=== PATIENT | female | born 1950 | race Caucasian/White ===

== ENCOUNTER 2017-04-02 12:01 | Emergency (ER) | payer MEDICARE, OTHER ==
[2017-04-02] MEDS ORDERED: HYOSCYAMINE SULFATE ODT 0.125 MG TAB.SUBL SL ONE (12:17)
--- NOTE | 2017-04-02 12:20 | Emergency Department Record ---
History of Present Illness - General Chief complaint: Nausea, Vomiting, Diarrhea Stated complaint: DIARRHEA Time Seen by Provider: 04/02/17 12:16 Source: Patient Mode of Arrival: Ambulatory Limitations: No limitations - History of Present Illness Initial comments: 66 yo female presents to ED with a 48-hour history of loose stools and abdominal cramping symptoms. Patient denies nausea or vomiting, denies fevers/ chills. Patient denies any recent ill contacts, and denies antibiotic use in the past 3 months. Patient denies eating anything out of ordinary as well. MD complaint: Abdominal pain, Diarrhea Onset/Timin -: Days(s) Description of Vomiting: Watery Associated Abdominal Pain: Yes Location: Diffuse Severity: Moderate Severity scale (1-10): 6 Quality: Aching Consistency: Constant Improves with: None Associated Symptoms: Denies other symptoms - Related Data Home Medications Medication Instructions Recorded Confirmed Last Taken Multivitamin [Multi-Day Vitamins] 1 each PO tab 12/30/15 Unknown Previous Rx's Medication Instructions Recorded Ciprofloxacin HCl [Cipro] 500 mg PO Q12HR #20 tablet 04/02/17 Hyoscyamine Sulfate [Levsin-Sl] 0.25 mg SL Q8H PRN #15 tab.subl 04/02/17 Metronidazole [Flagyl] 500 mg PO TID #30 tablet 04/02/17 Allergies Allergy/AdvReac Type Severity Reaction Status Date / Time amoxicillin Allergy RASH Verified 04/02/17 12:09 shellfish derived Allergy PT UNSURE Verified 04/02/17 12:09 OF REACTION Travel Screening - Travel/Exposure Within Last 30 Days Have you traveled within the last 30 days?: No - Travel/Exposure Within Last Year Have you traveled outside the [place] in the last year?: No - Additonal Travel Details Have you been exposed to anyone with a communicable illness?: No - Travel Symptoms Symptom Screening: None Review of Systems Constitutional: Denies: Chills, Fever, Malaise, Night sweats Eyes: Denies: Eye discharge, Eye pain ENT: Denies: Congestion, Ear pain, Epistaxis Respiratory: Denies: Cough, Dyspnea Cardiovascular: Denies: Chest pain, Dyspnea on exertion Endocrine: Denies: Fatigue, Heat or cold intolerance Gastrointestinal: Reports: Abdominal pain, Diarrhea. Denies: Nausea, Vomiting Genitourinary: Denies: Incontinence, Retention Musculoskeletal: Denies: Arthralgia, Back pain, Gout, Joint swelling Skin: Denies: Bruising, Change in color Neurological: Reports: Headache. Denies: Abnormal gait Psychiatric: Denies: Anxiety Hematological/Lymphatic: Denies: Anemia, Blood Clots Past Medical History - SOCIAL HISTORY Smoking Status: Never smoker Alcohol Use: None Drug Use: None - RESPIRATORY Hx Respiratory Disorders: Yes Hx Asthma: Yes Hx Pneumonia: Yes Hx Pulmonary Embolism: Yes - CARDIOVASCULAR Hx Cardio Disorders: No - NEURO Hx Neuro Disorders: No - GI Hx GI Disorders: No - Hx Genitourinary Disorders: No - ENDOCRINE Hx Endocrine Disorders: No - MUSCULOSKELETAL Hx Musculoskeletal Disorders: No - PSYCH Hx Psych Problems: No - HEMATOLOGY/ONCOLOGY Hx Hematology/Oncology Disorders: No Family Medical History Any Significant Family History?: Yes Family Hx Comment (NOT TO BE USED IN PLACE OF ITEMS BELOW): Grandparents- Alzhiemers,Parkinson's. Mother- Alzhiemer's. Father- Clots. Grandparents- clots Hx Cancer: Mother, Brother/Sister Physical Exam - General General Appearance: Alert, Oriented x3, Cooperative, Moderate distress Limitations: No limitations - Head Head exam: Atraumatic, Normocephalic, Normal inspection Head exam detail: negative: Abrasion, Contusion, Ugalde's sign, General tenderness, Hematoma, Laceration - Eye Eye exam: Normal appearance. negative: Conjunctival injection, Periorbital swelling, Periorbital tenderness, Scleral icterus - ENT Ear exam: negative: Auricular hematoma, Auricular trauma Nasal Exam: negative: Active bleeding, Discharge, Dried blood, Foreign body Mouth exam: negative: Drooling, Laceration, Muffled voice, Tongue elevation - Neck Neck exam: Normal inspection. negative: Meningismus, Tenderness - Respiratory Respiratory exam: Normal lung sounds bilaterally. negative: Respiratory distress, Rhonchi, Stridor, Wheezes - Cardiovascular Cardiovascular Exam: Regular rate, Normal rhythm, Normal heart sounds - GI/Abdominal GI/Abdominal exam: Soft, Tenderness (MIld, diffuse TTP on examination, no rebound or guarding are present.). negative: Organomegaly, Pulsatile mass, Rebound, Rigid - Rectal Rectal exam: Deferred - exam: Deferred - Extremities Extremities exam: Normal inspection. negative: Calf tenderness, Pedal edema, Tenderness - Back Back exam: Denies: CVA tenderness (R), CVA tenderness (L) - Neurological Neurological exam: Alert, Normal gait, Oriented X3 - Psychiatric Psychiatric exam: Normal affect, Normal mood - Skin Skin exam: Normal color. negative: Abrasion Type of lesion: negative: abrasion Course Vital Signs 04/02/17 12:04 Temperature 97.5 F L Pulse Rate 73 Respiratory 16 Rate Blood Pressure 133/69 Pulse Ox 97 - Reevaluation(s) Reevaluation #1: 04/02/17 12:44 Labs reviewed and are grossly unremarkable for an acute process. Stool studies are pending. Reevaluation #2: 04/02/17 13:11 Patient was updated on all results, reports that she is unable to tolerte oral contrast at this time. Will perform CT imaging w/o contrast at this time. Stool sample has been sent to labs as well. Reevaluation #3: 04/02/17 14:58 Rotovirus, C. Diff, and WBCs in the stool are negative. Patient has just returned from CT, results are pending. Reevaluation #4: 04/02/17 15:56 CT Abdomen and Pelvis: Mild diffuse wall thickening of the colon c/w colitis Patient was updated on all results, will initiate Flagyl and Cipro for colitis as well Levsin for her cramping symptoms. Patient was counseled regarding care with Flagyl use, and the patient appears stable for discharge at this time. Medical Decision Making - Lab Data Result diagrams: 04/02/17 12:21 04/02/17 12:21 Disposition Disposition: Discharge Clinical Impression: Colitis Disposition: Home, Self-Care Condition: (2) Stable Instructions: Colitis (ED) Additional Instructions: Return to ED if your symptoms worsen or if you have any concerns. Cipro and Flagyl as directed. Follow-up with your family doctor in 3-5 days as directed. Prescriptions: Ciprofloxacin HCl [Cipro] 500 mg PO Q12HR #20 tablet Hyoscyamine Sulfate [Levsin-Sl] 0.25 mg SL Q8H PRN #15 tab.subl PRN Reason: Abdominal Pain Metronidazole [Flagyl] 500 mg PO TID #30 tablet Forms: Patient Portal Access Time of Disposition: 16:01
[2017-04-02 12:24] LABS: BASO % 0.1 % (0-6); GRAN % 78.3 % (47-80); HEMOGLOBIN 13.8 gm/dl (11.6-16.0); LYMPH % 13.9 % (16-45); MEAN CELL VOLUME 87.4 fl (81-97); MEAN CORPUSCULAR HEMOGLOBIN 29.4 pg (27-33); MEAN CORPUSCULAR HGB CONC 33.7 g/dl (32-36); MEAN PLATELET VOLUME 11.1 fl (7.4-10.4); MONO % 7.7 % (0-9); PLATELET COUNT 166 K/uL (130-400); RED BLOOD COUNT 4.69 M/uL (3.80-5.40); RED CELL DISTRIBUTION WIDTH 12.4 % (11.5-14.5); WHITE BLOOD COUNT W/O DIFF 8.2 K/uL (4.2-12.2)
[2017-04-02 12:36] LABS: ALB/GLOB RATIO 1.3 (1.1-1.8); ALBUMIN 4.3 gm/dL (3.5-5.0); ALKALINE PHOSPHATASE 91 U/L (38-126); ALT/SGPT 21 U/L (9-52); AST/SGOT 24 U/L (14-36); BILIRUBIN,TOTAL 0.47 mg/dL (0.2-1.3); BLOOD UREA NITROGEN 14 mg/dL (7-17); CREATININE 0.8 mg/dL (0.52-1.04); EST GLOMERULAR FILTRATION RATE > 60 ml/min; GLUCOSE,RANDOM 114 mg/dL (70-110); LIPASE 27 U/L (23-300); TOTAL PROTEIN 7.7 gm/dL (6.3-8.2)
[2017-04-02] MEDS ORDERED: ONDANSETRON HCL IV 4 MG/2 ML VIAL IVP ONE (12:48)
[2017-04-02 12:53] LABS: ROTOVIRUS NOT DETECTED (NOT DETECT)
[2017-04-02] MEDS: 0.9 % SODIUM CHLORIDE 1000ML 1,000 ML IV SCH ×2 (12:53→16:26)
[2017-04-02] MEDS ORDERED: METHYLPREDNISOLONE PF 125MG/VIAL IVP ONE (13:43)
[2017-04-02] MEDS ORDERED: DIPHENHYDRAMINE HCL IV 50 MG/ML VIAL IVP ONE (13:43)
[2017-04-02 13:52] LABS: STOOL FOR POLYS NO WBC'S OBSERVED
[2017-04-02 14:04] LABS: MOLECULAR C DIFF TOXIN SCREEN NOT DETECTED
[2017-04-02] MEDS ORDERED: 0.9 % SODIUM CHLORIDE 1000ML 1,000 ML IV PRN (14:35)
[2017-04-02] MEDS ORDERED: METRONIDAZOLE 250 MG TABLET PO ONE (15:55)
[2017-04-02] MEDS ORDERED: CIPROFLOXACIN HCL 500 MG TABLET PO ONE (15:55)
--- NOTE | 2017-04-05 07:44 | CT SCAN REPORT ---
EXAM: EMERGENCY CT OF THE ABDOMEN AND PELVIS WITH CONTRAST HISTORY: ABDOMINAL PAIN, LOOSE STOOLS, NAUSEA, DIARRHEA. TECHNIQUE: Axial CT scan of the abdomen and pelvis was obtained following the intravenous administration of 100 ml of Omnipaque 300 as the IV contrast. Only a small amount of oral contrast was given as the electromechanical technologist notes that the patient was unable to drink very much oral contrast. Comparison: No prior abdomen or pelvis CT with which to compare. Additional history is prior appendectomy. FINDINGS: The gallbladder is somewhat distended with no calcified gallstones seen within the gallbladder. There are a couple tiny low attenuation foci in the left lobe of the liver which are too small to accurately characterize although likely represent a couple tiny hepatic cysts or hemangiomas. No definite splenic, adrenal, pancreatic, or renal mass identified. The colon diffusely has a somewhat thick walled appearance throughout much of the colon today which may represent a colitis and clinical correlation is suggested. No free intraperitoneal air or free intraperitoneal fluid identified. Degenerative change in the facets of the lumbar spine particularly inferiorly. The appendix is not identified consistent with the surgical history. IMPRESSION: 1. POSTOP APPENDECTOMY. 2. MUCH OF THE COLON HAS A DIFFUSELY SOMEWHAT THICK WALLED APPEARANCE. THIS IS MOST PROMINENT IN THE REGION OF THE CECUM, BUT IS SEEN ELSEWHERE WELL AND PRESUMABLY REPRESENTS A FAIRLY DIFFUSE COLITIS. CLINICAL CORRELATION IS SUGGESTED AND FOLLOW-UP COLONOSCOPY MAY BE WARRANTED. 3. A COUPLE TINY LOW ATTENUATION FOCI LEFT LOBE OF THE LIVER, TOO SMALL TO ACCURATELY CHARACTERIZE, BUT PROBABLY A COUPLE TINY HEPATIC CYSTS OR HEMANGIOMAS. JOB NUMBER: [id number] MTDD
== END 2017-04-02 16:30 | disposition home or self-care (01) ==
LOC: ER 12:01
DX: K52.9 Noninfective gastroenteritis and colitis, unspecified (principal); R11.2 Nausea with vomiting, unspecified; R10.9 Unspecified abdominal pain
CPT/HCPCS: 99284 ×2; 96374; 96375; 96361; 83690; 85025; 80053; 89055; 87425; 87427; 87493; 74177; Q9967; J1980; J2405; J1200; J2930; J7030

== ENCOUNTER 2018-09-27 08:35 | Emergency (ER) | payer MEDICARE, OTHER ==
[2018-09-27] MEDS ORDERED: IPRATROPIUM/ALBUTEROL (0.5MG/3MG) NEB INH ONE (08:40)
[2018-09-27] MEDS ORDERED: METHYLPREDNISOLONE PF 125MG/VIAL IVP ONE (08:40)
--- NOTE | 2018-09-27 08:44 | Emergency Department Record ---
History of Present Illness - General Chief Complaint: Shortness of breath Stated Complaint: EVIE Time Seen by Provider: 09/27/18 08:37 Source: Patient, Family Mode of Arrival: Ambulatory Limitations: No limitations - History of Present Illness Initial Comments: 68 yo female presents with shortness of breath starting last night. She states she has asthma and this feels similar. She reports the prior few days were at her baseline. She reports she does have frequent asthma symptoms but they are usually controlled. She has not seen her PCP for over a year. She has a cough that feels congested. No chest pain. No fever. No edema. The cough is not productive at this time. Her PCP is the [facility]. She is not a smoker. She denies a history of CAD. No NVD. She used her Albuterol twice during the night. MD Complaint: Cough, Shortness of breath -: Days(s) (1) Severity: Moderate Quality: Other Improves With: Nothing Worsens With: Coughing, Exertion, Movement Known History Of: Asthma Context: Recent URI Associated Symptoms: Cough Treatments Prior to Arrival: Bronchodilator - Related Data Previous Rx's Medication Instructions Recorded Albuterol Sulfate 0.083% [Neb] 3 ml NEB .EVERY 4-6 HOURS PRN #90 09/27/18 ml Albuterol Sulfate [Proair Hfa] 1 - 2 puff IH .EVERY 4-6 HOURS PRN 09/27/18 #1 inhaler Prednisone [Prednisone 20Mg] 20 mg PO BID #14 tab 09/27/18 Allergies Allergy/AdvReac Type Severity Reaction Status Date / Time amoxicillin Allergy RASH Unverified 04/14/17 08:07 shellfish derived Allergy PT UNSURE Unverified 04/14/17 08:07 OF REACTION Review of Systems Constitutional: Reports: Chills. Denies: Fever Eyes: Denies: Eye discharge, Photophobia, Vision change ENT: Reports: Congestion. Denies: Epistaxis, Throat pain Respiratory: Reports: Cough, Dyspnea, Wheezes. Denies: Hemoptysis Cardiovascular: Denies: Chest pain, Palpitations, Syncope Endocrine: Reports: Fatigue Gastrointestinal: Denies: Abdominal pain, Diarrhea, Nausea, Vomiting Genitourinary: Denies: Dysuria, Urgency Musculoskeletal: Denies: Arthralgia, Back pain, Joint swelling, Myalgia Skin: Denies: Bruising, Change in color, Rash Neurological: Denies: Headache, Weakness Psychiatric: Denies: Anxiety Hematological/Lymphatic: Denies: Blood Clots, Easy bleeding, Easy bruising, Swollen glands Past Medical History - SOCIAL HISTORY Smoking Status: Never smoker Drug Use: None - RESPIRATORY Hx Respiratory Disorders: Yes Hx Asthma: Yes Hx Pneumonia: Yes Hx Pulmonary Embolism: Yes - CARDIOVASCULAR Hx Cardio Disorders: No - NEURO Hx Neuro Disorders: No - GI Hx GI Disorders: No - Hx Genitourinary Disorders: No - ENDOCRINE Hx Endocrine Disorders: No - MUSCULOSKELETAL Hx Musculoskeletal Disorders: No - PSYCH Hx Psych Problems: No - HEMATOLOGY/ONCOLOGY Hx Hematology/Oncology Disorders: No Family Medical History Family Hx Comment (NOT TO BE USED IN PLACE OF ITEMS BELOW): Grandparents- Alzhiemers,Parkinson's. Mother- Alzhiemer's. Father- Clots. Grandparents- clots Hx Cancer: Mother, Brother/Sister Physical Exam - General General Appearance: Alert, Oriented x3, Cooperative, No acute distress Limitations: No limitations - Head Head exam: Atraumatic, Normal inspection - Eye Eye exam: Normal appearance. negative: Conjunctival injection - ENT ENT exam: Normal exam, Mucous membranes moist, Normal orophraynx Ear exam: Normal external inspection Nasal Exam: Normal inspection Mouth exam: Normal external inspection Throat exam: Normal inspection - Neck Neck exam: Normal inspection - Respiratory Respiratory exam: Accessory muscle use, Decreased breath sounds, Prolonged expiratory, Rhonchi, Wheezes. negative: Normal lung sounds bilaterally, Chest wall tenderness, Rales - Cardiovascular Cardiovascular Exam: Tachycardia Peripheral Pulses: 2+: Radial (R), Radial (L) - GI/Abdominal GI/Abdominal exam: Soft. negative: Tenderness - Rectal Rectal exam: Deferred - exam: Deferred - Extremities Extremities exam: Normal inspection. negative: Pedal edema - Back Back exam: Denies: CVA tenderness (R), CVA tenderness (L) - Neurological Neurological exam: Alert, Oriented X3 - Psychiatric Psychiatric exam: Normal affect, Normal mood. negative: Agitated, Anxious - Skin Skin exam: Dry, Intact, Normal color, Warm Course - Reevaluation(s) Reevaluation #1: EKG 08:44 Sinus Tachycardia 134, intervals Qtc 550, axis normal, ST no acute changes. 09/27/18 08:53 I expressed to the patient with her low oxygen level, elevated HR and work of breathing she should be admitted for further treatments, oxygen, IV steroids. At this time she expresses that she will not. She has other obligations and is not willing to be admitted. We discussed my concerns and that it could be dangerous to leave. She will be re-assessed and discuss this again when all tests are reviewed. 09/27/18 09:08 On recheck after the Duoneb and oxygen of 2LNC HR not 95-100. Symptomatically much improved with decreased work of breathing and she subjectively feels better. 09/27/18 09:17 The CBC was reviewed. WBC is 15 with Hgb of 13. 09/27/18 09:49 The BMP is normal The Troponin is normal The Influenza are normal 09/27/18 09:56 The CXR was read as no acute process. Chronic scarring unchanged in the left lingula. 09/27/18 10:09 Repeat EKG with improved HR was completed EKG#2 10:03 NSR rate of 92 with APC's, intervals now normal, ST no acute changes. Donaldson normal. 09/27/18 10:21 The patient states she is still not willing to stay in the hospital. I recommended removing the oxygen and further monitoring in the ED. She is now non labored. HR in the 90's. She states she is very comfortable. 09/27/18 10:47 The patient is still doing much better but her oxygen level is 89-91% on room air. I again discussed the benefits of admission on oxygen vs the dangers of discharge including but not limited to passing out, heart damage, respiratory failure. She understands my concerns but will not be admitted. We discussed the AMA process and that she would need to sign out AMA taking that risk. She agrees to signing out. She also was made aware she can change her mind at any time and return. She is to call the [facility] today for close follow up Medical Decision Making - Lab Data Result diagrams: 09/27/18 08:56 09/27/18 08:56 Disposition Disposition: Other Clinical Impression: Dyspnea Qualifiers: Dyspnea type: unspecified Qualified Code(s): R06.00 - Dyspnea, unspecified Acute asthma exacerbation Qualifiers: Asthma severity: moderate Asthma persistence: unspecified Qualified Code(s): J45.901 - Unspecified asthma with (acute) exacerbation Disposition: Against Medical Advice Condition: (3) Guarded Instructions: Against Medical Advice (ED), Asthma (ED) Additional Instructions: You may return at anytime for a recheck of your symptoms You are signing out AMA today for your symptoms Take the Prednisone as directed You may do the breathing treatments at home every 4 hours. Prescriptions: Albuterol Sulfate [Proair Hfa] 1 - 2 puff IH .EVERY 4-6 HOURS PRN #1 inhaler PRN Reason: Difficulty In Breathing Albuterol Sulfate 0.083% [Neb] 3 ml NEB .EVERY 4-6 HOURS PRN #90 ml PRN Reason: Difficulty In Breathing Prednisone [Prednisone 20Mg] 20 mg PO BID #14 tab Forms: Patient Portal Access Time of Disposition: 10:52 Quality - Quality Measures Quality Measures: N/A - Blood Pressure Screening Does Patient Have Any of the Following: No Blood Pressure Classification: Pre-Hypertensive BP Reading Systolic Measurement: 144 Diastolic Measurement: 87 Screening for High Blood Pressure: < Pre-Hypertensive BP, F/U Documented > [ G8950] Pre-Hypertensive Follow-up Interventions: Referral to alternative/primary care provider.
[2018-09-27 09:02] LABS: BASO % 0.2 % (0-6); EOS % 0.1 % (0-6); HEMATOCRIT 40.5 % (35.0-47.0); HEMOGLOBIN 13.4 gm/dl (11.6-16.0); LYMPH % 3.9 % (16-45); MEAN CELL VOLUME 92.7 fl (81-97); MEAN CORPUSCULAR HEMOGLOBIN 30.7 pg (27-33); MEAN CORPUSCULAR HGB CONC 33.1 g/dl (32-36); MEAN PLATELET VOLUME 10.5 fl (7.4-10.4); MONO % 2.9 % (0-9); PLATELET COUNT 264 K/uL (130-400); RED BLOOD COUNT 4.37 M/uL (3.80-5.40); RED CELL DISTRIBUTION WIDTH 12.3 % (11.5-14.5); WHITE BLOOD COUNT W/O DIFF 15.9 K/uL (4.2-12.2)
[2018-09-27 09:14] LABS: BLOOD UREA NITROGEN 7 mg/dL (8-23); CREATININE 0.6 mg/dL (0.5-0.9); EST GLOMERULAR FILTRATION RATE > 60 mL/min; PLATELET ESTIMATE NORMAL (NORMAL)
[2018-09-27 09:17] LABS: GLUCOSE,RANDOM 119 mg/dL (74-109)
[2018-09-27 09:34] LABS: INFLUENZA A NEGATIVE (NEGATIVE); INFLUENZA B NEGATIVE (NEGATIVE)
--- NOTE | 2018-09-29 08:14 | RADIOLOGY REPORT ---
EXAM: CHEST, TWO VIEWS HISTORY: DIFFICULTY BREATHING AND COUGH, HISTORY OF ASTHMA. TECHNIQUE: Two views of the chest were obtained. Comparison: CT chest 09/16/16, chest radiograph 12/23/15. FINDINGS: The cardiac silhouette is within normal limits. The pulmonary vasculature is nondilated. Chronic small lingular consolidation, similar appearance since 2016 likely representing scarring. No new focal pulmonary opacities. No pleural effusion or pneumothorax. IMPRESSION: 1. NO DEFINITE ACUTE LUNG FINDINGS. 2. CHRONIC FOCAL OPACITY IN THE LINGULA WHICH APPEARS UNCHANGED SINCE 2016 AND LIKELY REPRESENTS SCARRING. JOB NUMBER: [id number] MTDD
== END 2018-09-27 11:16 | disposition left against medical advice (07) ==
LOC: ER 08:35
DX: J45.901 Unspecified asthma with (acute) exacerbation (principal); R06.00 Dyspnea, unspecified
CPT/HCPCS: 71046; 80048; 84484; 85027; 87400; 93005; 93010; 94640; 96374; 99284; J2930

== ENCOUNTER 2018-12-09 18:42 | Emergency (ER) | payer MEDICARE, OTHER ==
[2018-12-09] MEDS ORDERED: IPRATROPIUM/ALBUTEROL (0.5MG/3MG) NEB INH ONE (18:43)
[2018-12-09] MEDS ORDERED: METHYLPREDNISOLONE PF 125MG/VIAL IVP ONE (18:43)
[2018-12-09] MEDS ORDERED: ALBUTEROL (0.5% CONCENTRATED) 2.5 MG/0.5 ML VIAL.NEB INH ONE ×4 (18:49→21:06)
--- NOTE | 2018-12-09 18:49 | Emergency Department Record ---
History of Present Illness - General Chief Complaint: Difficulty Breathing Stated Complaint: EVIE Time Seen by Provider: 12/09/18 18:43 Source: Patient Mode of Arrival: Ambulatory Limitations: No limitations - History of Present Illness Initial Comments: 68 yo female presents to ED for evaluation of worsening difficulty in breathing symptoms that began last night. Patient reports a history of asthma, denies fevers, chills, or productive cough symptoms. Patient reports similar symptoms 2 months ago, reports symptoms are improved with breathing treatments at home however her symptoms quickly return prompting visit to the ED. MD Complaint: Shortness of breath Onset/Timin -: Hour(s) Severity: Moderate Consistency: Constant Improves With: Bronchodilators Worsens With: Nothing Known History Of: Asthma Associated Symptoms: Denies other symptoms Treatments Prior to Arrival: Bronchodilator - Related Data Home Oxygen Therapy: No Previous Rx's Medication Instructions Recorded Albuterol Sulfate 0.083% [Neb] 3 ml NEB .EVERY 4-6 HOURS PRN #90 09/27/18 [Albuterol Sulfate] ml Albuterol Sulfate [Proair Hfa] 1 - 2 puff IH .EVERY 4-6 HOURS PRN 09/27/18 #1 inhaler Prednisone [Prednisone 20Mg] 20 mg PO TID #15 tab 12/09/18 Allergies Allergy/AdvReac Type Severity Reaction Status Date / Time amoxicillin Allergy RASH Unverified 11/14/18 08:23 shellfish derived Allergy PT UNSURE Unverified 11/14/18 08:23 OF REACTION Review of Systems Constitutional: Denies: Chills, Fever, Malaise, Night sweats Eyes: Denies: Eye discharge, Eye pain ENT: Denies: Congestion, Ear pain, Epistaxis Respiratory: Reports: Cough, Dyspnea, Wheezes Cardiovascular: Denies: Chest pain, Dyspnea on exertion Endocrine: Denies: Fatigue Gastrointestinal: Denies: Abdominal pain, Nausea, Vomiting Genitourinary: Denies: Incontinence, Retention Musculoskeletal: Denies: Arthralgia, Back pain Skin: Denies: Bruising, Change in color Neurological: Denies: Abnormal gait, Confusion, Headache Psychiatric: Denies: Anxiety Hematological/Lymphatic: Denies: Anemia, Blood Clots Past Medical History - SOCIAL HISTORY Smoking Status: Never smoker Drug Use: None - RESPIRATORY Hx Respiratory Disorders: Yes Hx Asthma: Yes Hx Pneumonia: Yes Hx Pulmonary Embolism: Yes - CARDIOVASCULAR Hx Cardio Disorders: No - NEURO Hx Neuro Disorders: No - GI Hx GI Disorders: No - Hx Genitourinary Disorders: No - ENDOCRINE Hx Endocrine Disorders: No - MUSCULOSKELETAL Hx Musculoskeletal Disorders: No - PSYCH Hx Psych Problems: No - HEMATOLOGY/ONCOLOGY Hx Hematology/Oncology Disorders: No Family Medical History Family Hx Comment (NOT TO BE USED IN PLACE OF ITEMS BELOW): Grandparents- Alzhiemers,Parkinson's. Mother- Alzhiemer's. Father- Clots. Grandparents- clots Hx Cancer: Mother, Brother/Sister Physical Exam - General General Appearance: Alert, Oriented x3, Cooperative, Moderate distress Limitations: No limitations - Head Head exam: Atraumatic, Normocephalic, Normal inspection Head exam detail: negative: Abrasion, Contusion, Ugalde's sign, General tenderness, Hematoma, Laceration - Eye Eye exam: Normal appearance. negative: Conjunctival injection, Periorbital swelling, Periorbital tenderness, Scleral icterus - ENT Ear exam: negative: Auricular hematoma, Auricular trauma Nasal Exam: negative: Active bleeding, Discharge, Dried blood, Foreign body Mouth exam: negative: Drooling, Laceration, Muffled voice, Tongue elevation - Neck Neck exam: Normal inspection. negative: Meningismus, Tenderness - Respiratory Respiratory exam: Decreased breath sounds, Prolonged expiratory, Respiratory distress, Wheezes - Cardiovascular Cardiovascular Exam: Regular rate, Normal rhythm, Normal heart sounds - GI/Abdominal GI/Abdominal exam: Soft. negative: Distended, Rebound, Rigid, Tenderness - Rectal Rectal exam: Deferred - exam: Deferred - Extremities Extremities exam: Normal inspection. negative: Pedal edema, Tenderness - Back Back exam: Denies: CVA tenderness (R), CVA tenderness (L) - Neurological Neurological exam: Alert, Normal gait, Oriented X3 - Psychiatric Psychiatric exam: Normal affect, Normal mood - Skin Skin exam: Normal color. negative: Abrasion Type of lesion: negative: abrasion Course - Reevaluation(s) Reevaluation #1: 12/09/18 18:50 EKG: NSR 97 Normal axis, normal intervals T wave inversions V4-V6 new from previous 09/27/18 Reevaluation #2: 12/09/18 19:46 CXR: No acute process Laboratory studies were reviewed and are grossly unremarkable for an acute process. Reevaluation #3: 12/09/18 19:59 Patient was updated on all results, plan for admission based on the patient's current vitals (pulse 125, O2 sat 93-94% 2L NC). Patient is declining admission at this time stating "my just got out of the hospital and I need to be home to help him". Risks of , permanent impairment, or worsening of their current condition were discussed as well as the benefit of admission for further evaluation) of their presenting symptoms. Patient verbalizes understanding of all risks and benefits, desires to leave AMA despite these risks. Based on my examination, the patient is alert, oriented, and answers all questions appropriately. Patient appears to have the capacity to make rational decisions based on my examination. Patient was encouraged to return to the ED immediately if they change their mind about treatment and want to be re-evaluated. Will infuse 1 Liter NS bolus to assist with the patient's pulse and monitor for until the patient is decides to leave AMA. Reevaluation #4: 12/09/18 21:16 Patient was updated on all results, reports that she is feeling better and would like to leave AMA at this time. Will discharge AMA with Rx for Prednisone as directed and strict instructions to return immediately for any worsening of her symptoms. Medical Decision Making - Lab Data Result diagrams: 12/09/18 18:45 12/09/18 18:45 Disposition Disposition: Discharge Clinical Impression: Hypoxia Asthma exacerbation Qualifiers: Asthma severity: moderate Asthma persistence: unspecified Qualified Code(s): J45.901 - Unspecified asthma with (acute) exacerbation Disposition: Against Medical Advice Condition: (2) Stable Instructions: Asthma (ED) Additional Instructions: Return to ED if your symptoms worsen or if you have any concerns. Prednisone as directed. Follow-up with your family doctor in 1-3 days as directed. Prescriptions: Prednisone [Prednisone 20Mg] 20 mg PO TID #15 tab Forms: Patient Portal Access Time of Disposition: 21:17 Quality - Quality Measures Quality Measures: N/A - Blood Pressure Screening Does Patient Have Any of the Following: No Blood Pressure Classification: Pre-Hypertensive BP Reading Systolic Measurement: 136 Diastolic Measurement: 63 Screening for High Blood Pressure: < Pre-Hypertensive BP, F/U Documented > [ G8950] Pre-Hypertensive Follow-up Interventions: Referral to alternative/primary care provider.
[2018-12-09 19:02] LABS: HEMATOCRIT 41.3 % (35.0-47.0); HEMOGLOBIN 13.3 gm/dl (11.6-16.0); MEAN CELL VOLUME 92.6 fl (81-97); MEAN CORPUSCULAR HEMOGLOBIN 29.8 pg (27-33); MEAN CORPUSCULAR HGB CONC 32.2 g/dl (32-36); MEAN PLATELET VOLUME 10.7 fl (7.4-10.4); PLATELET COUNT 224 K/uL (130-400); RED BLOOD COUNT 4.46 M/uL (3.80-5.40); RED CELL DISTRIBUTION WIDTH 13.1 % (11.5-14.5); WHITE BLOOD COUNT W/O DIFF 9.2 K/uL (4.2-12.2)
[2018-12-09 19:13] LABS: PLATELET ESTIMATE NORMAL (NORMAL)
[2018-12-09 19:15] LABS: BLOOD UREA NITROGEN 8 mg/dL (8-23); CREATININE 0.5 mg/dL (0.5-0.9); EST GLOMERULAR FILTRATION RATE > 60 mL/min
[2018-12-09 19:18] LABS: GLUCOSE,RANDOM 132 mg/dL (74-109)
[2018-12-09 19:18] LABS: INFLUENZA A NEGATIVE (NEGATIVE); INFLUENZA B NEGATIVE (NEGATIVE)
[2018-12-09 19:20] LABS: ALT/SGPT 11 U/L (<33); AST/SGOT 14 U/L (10.0-35.0)
[2018-12-09 19:21] LABS: ALB/GLOB RATIO 1.4 (1.1-1.8); ALBUMIN 4.7 g/dL (4.0-5.0); ALKALINE PHOSPHATASE 72 U/L (45-87)
[2018-12-09] MEDS ORDERED: 0.9 % SODIUM CHLORIDE 1000ML 1,000 ML IV SCH (20:00)
[2018-12-09] MEDS ORDERED: ACETAMINOPHEN 500 MG TABLET PO ONE (20:02)
[2018-12-09] MEDS ORDERED: ALBUTEROL SULFATE (0.083%) 2.5 MG/3 ML NEB INH ONE (21:06)
--- NOTE | 2018-12-13 08:24 | RADIOLOGY REPORT ---
EXAM: CHEST, TWO VIEWS HISTORY: DYSPNEA STARTING LAST NIGHT. TECHNIQUE: PA and lateral views of the chest were obtained. Comparison: 09/27/18 and 12/23/15. FINDINGS: The cardiac silhouette is normal in size. The pulmonary vasculature is not congested. There is chronic focal opacity in the lingula present since 2016 and likely related to scarring. No new consolidation, pleural effusion, or pneumothorax is seen. The bones are demineralized. IMPRESSION: NO EVIDENCE FOR PNEUMONIA OR PULMONARY EDEMA. JOB NUMBER: [id number] [facility]
== END 2018-12-09 21:41 | disposition left against medical advice (07) ==
LOC: ER 18:42
DX: J45.901 Unspecified asthma with (acute) exacerbation (principal); R09.02 Hypoxemia; R00.0 Tachycardia, unspecified
CPT/HCPCS: 71046; 80053; 84484; 85027; 87400; 93005; 93010; 94640; 96374; 99284; J2930; J7030; J7613

== ENCOUNTER 2019-07-16 08:01 | Emergency (ER) | payer MEDICARE, OTHER ==
--- NOTE | 2019-07-16 08:23 | Emergency Department Record ---
History of Present Illness - General Chief Complaint: Fall Injury Stated Complaint: FALL,BACK PAIN Time Seen by Provider: 07/16/19 08:15 Source: Patient Mode of Arrival: Ambulatory Limitations: No limitations - History of Present Illness Initial Comments: The patient is here due to low back pain after falling at home and hour ago. She was walking the dog and the dog ran into the back of her legs and she fell backwards landing on her back on the grass. She did hit her head on the ground but had no LOC. Since she has had no WELSH or neck pain but only having significant low back pain. There is NO AP, CP, leg numbness or weakness. The patient is ambulating normally and she is not on any blood thinners. MD Complaint: Fall Onset/Timin -: Hour(s) Fall From: Standing When Fall Occurred: 1-3 hours [employer] Fall Witnessed: No Place Fall Occurred: Home Associated Symptoms: Denies - David Coma Scale Eye Response: (4) Open spontaneously Motor Response: (6) Obeys commands Verbal Response: (5) Oriented Thornton Total: 15 - Related Data Allergies Allergy/AdvReac Type Severity Reaction Status Date / Time amoxicillin Allergy RASH Unverified 02/13/19 10:59 shellfish derived Allergy PT UNSURE Unverified 02/13/19 10:59 OF REACTION Travel Screening - Travel/Exposure Within Last 30 Days Have you traveled within the last 30 days?: No - Travel/Exposure Within Last Year Have you traveled outside the [place] in the last year?: No - Additonal Travel Details Have you been exposed to anyone with a communicable illness?: No - Travel Symptoms Symptom Screening: None Review of Systems Constitutional: Denies: Chills, Fever Eyes: Denies: Eye discharge ENT: Denies: Congestion Respiratory: Denies: Cough, Dyspnea Past Medical History - SOCIAL HISTORY Smoking Status: Never smoker Alcohol Use: None Drug Use: None - RESPIRATORY Hx Respiratory Disorders: Yes Hx Asthma: Yes Hx Pneumonia: Yes Hx Pulmonary Embolism: Yes - CARDIOVASCULAR Hx Cardio Disorders: No - NEURO Hx Neuro Disorders: No - GI Hx GI Disorders: No - Hx Genitourinary Disorders: No - ENDOCRINE Hx Endocrine Disorders: No - MUSCULOSKELETAL Hx Musculoskeletal Disorders: No - PSYCH Hx Psych Problems: No - HEMATOLOGY/ONCOLOGY Hx Hematology/Oncology Disorders: No Family Medical History Any Significant Family History?: No Family Hx Comment (NOT TO BE USED IN PLACE OF ITEMS BELOW): Grandparents- Alzhiemers,Parkinson's. Mother- Alzhiemer's. Father- Clots. Grandparents- clots Hx Cancer: Mother, Brother/Sister Physical Exam - General General Appearance: Alert, Oriented x3, Cooperative, No acute distress - Head Head exam: Atraumatic, Normocephalic, Normal inspection - Eye Eye exam: Normal appearance, PERRL - Neck Neck exam: Normal inspection, Full ROM. negative: Tenderness - Respiratory Respiratory exam: Normal lung sounds bilaterally. negative: Respiratory distress - Cardiovascular Cardiovascular Exam: Regular rate, Normal rhythm, Normal heart sounds - GI/Abdominal GI/Abdominal exam: Soft, Normal bowel sounds. negative: Tenderness - Extremities Extremities exam: Normal inspection, Full ROM, Normal capillary refill. negative: Tenderness Image of Full Body: 1 - Area of pain and tenderness. - Back Back exam: Reports: Normal inspection, Vertebral tenderness (L1-4 and paraspinal area.) - Neurological Neurological exam: Alert, Normal gait. negative: Abnormal gait, Motor sensory deficit Course Vital Signs 07/16/19 08:03 Temperature 97.8 F Pulse Rate 66 Respiratory 18 Rate Blood Pressure 121/63 Pulse Ox 99 - Reevaluation(s) Reevaluation #1: The patient is doing Ok at this time and is ambulating normally. I did discuss the neg xrays with the patient and the need for recheck with her PCP this week. She also understands the need to return for any worsening symptoms. 07/16/19 09:14 Medical Decision Making - Data Complexity MDM Data: X-Ray Ordered and/or Reviewed - Radiology Data Radiology results: Report reviewed (Lumbar films: Neg.) Disposition Disposition: Discharge Clinical Impression: Low back pain Qualifiers: Chronicity: acute Back pain laterality: unspecified Sciatica presence: without sciatica Qualified Code(s): M54.5 - Low back pain Disposition: Home, Self-Care Condition: (2) Stable Instructions: Low Back Strain (ED) Additional Instructions: Please continue your home pain medicines and rest. Please see your family doctor for recheck later this week. Return to the ER for any worsening pain, headache, vomiting, leg weakness, numbness or any bowel or bladder issues. Forms: Patient Portal Access Time of Disposition: 09:09 Quality - Quality Measures Quality Measures: N/A - Blood Pressure Screening View Details: Yes Does Patient Have Any of the Following: No Blood Pressure Classification: Pre-Hypertensive BP Reading Systolic Measurement: 121 Diastolic Measurement: 63 Screening for High Blood Pressure: < Pre-Hypertensive BP, F/U Documented > [G8950] Pre-Hypertensive Follow-up Interventions: Referral to alternative/primary care provider.
== END 2019-07-16 09:16 | disposition home or self-care (01) ==
LOC: ER 08:01
DX: G89.11 Acute pain due to trauma (principal); M54.5 Low back pain; W18.31XA Fall on same level due to stepping on an object, initial encounter; Y93.K1 Activity, walking an animal; Y92.007 Garden or yard of unspecified non-institutional (private) residence as the place of occurrence of the external cause
CPT/HCPCS: 72110; 99283